=== PATIENT | female | born 1950 | race Caucasian/White ===

== ENCOUNTER → 2016-09-09 | Outpatient (CLI) | payer MEDICARE, OTHER ==
[2016-09-09 14:19] LABS: CREATININE FOR GFR 1.24 MG/DL (0.55-1.02); GLOMERULAR FILTRATION RATE 45.8 (>45)
== END ==
LOC: M LAB 13:37
PROVIDERS: ATTEND Internal Medicine Pulmonary Disease
DX: D86.2 Sarcoidosis of lung with sarcoidosis of lymph nodes (principal)

== ENCOUNTER → 2016-10-05 | Outpatient (CLI) | payer MEDICARE, OTHER ==
[~2016-10-05] MED LIST: ISOVUE-370 76% 100ML VIAL (Q9967) As Ordered ONE
--- NOTE | 2016-10-05 10:35 | REP ---
Clinical: Bronchiectasis. Technique: Axial contrast enhanced images from the lung bases to the pubic symphysis using 100 ml Isovue 370 intravenous contrast material with coronal and sagittal re-formations. Comparison: 06/23/2016, 05/04/2016. Findings: Mild perihilar bronchiectasis is again noted and stable. A subtle diffuse reticulonodular pattern is again appreciated but appears considerably improved when compared to prior examinations. A chronic density with adjacent scarring and possible clip is identified in the basilar right middle lobe which is unchanged from prior examination (images 56 - 63). Noncalcified nodules measuring 4 mm in the right upper lobe (image 39), left lower lobe (image 77) remains stable dating through 05/04/2016. No acute consolidation, pleural effusion/reaction or mass lesion is appreciated. No acute adenopathy. Partially calcified mediastinal and hilar lymph nodes suggest sequelae of prior granulomatous disease or post-therapeutic changes. The heart is upper limits of normal and atherosclerotic changes to the thoracic aorta and coronary arteries noted. No pericardial effusion. Impression: 1. Chronic-appearing changes as described above either stable or improved when compared to prior examinations. 2. No adenopathy and no new acute mediastinal or pleuroparenchymal process appreciated. Signed by Emmanuel Green MD 10/05/2016 10:27 A
== END ==
LOC: M RAD 09:04
PROVIDERS: ATTEND Internal Medicine Pulmonary Disease
DX: J47.1 Bronchiectasis with (acute) exacerbation (principal)
CPT/HCPCS: 71260; Q9967

== ENCOUNTER → 2016-11-04 | Outpatient (CLI) | payer MEDICARE, OTHER ==
--- NOTE | 2016-11-05 09:21 | REPMRS ---
Patient History The patient states she had a clinical breast exam in 10/2016. Family history of breast cancer in maternal aunt at age 50 or over. Taking unspecified hormones. Digital Woman Screen Mammo: November 04, 2016 - Exam #: [id number] Bilateral CC and MLO view(s) were taken. Technologist: Sharron Figueroa Technologist FINDINGS: The breast tissue is heterogeneously dense. This may lower the sensitivity of mammography. There has been no change in the appearance of the mammogram from the prior studies. There is a moderate amount of residual fibroglandular tissue which is fairly symmetric. There is no interval development of dominant mass, areas of architectural distortion, or clustered microcalcification typical of malignancy. ASSESSMENT: BI-RADS/ACR category 1 mammogram. Negative. Recommendation Routine screening mammogram in 1 year (for women over age 40). This mammogram was interpreted with the aid of an FDA-approved computer-aided dectection system. Electronically Signed By: Chintan Du MD 11/05/16 0921
== END ==
LOC: M WHC 10:58
PROVIDERS: ATTEND Nurse Practitioner Family
DX: Z01.419 Encounter for gynecological examination (general) (routine) without abnormal findings (principal); Z12.31 Encounter for screening mammogram for malignant neoplasm of breast; Z79.899 Other long term (current) drug therapy; N95.1 Menopausal and female climacteric states; N89.8 Other specified noninflammatory disorders of vagina; R92.8 Other abnormal and inconclusive findings on diagnostic imaging of breast
CPT/HCPCS: G0101; G0202

== ENCOUNTER → 2018-01-10 | Outpatient (CLI) | payer MEDICARE, OTHER | LOC: M WHC 15:05 | DX: Z12.31 Encounter for screening mammogram for malignant neoplasm of breast (principal); R92.8 Other abnormal and inconclusive findings on diagnostic imaging of breast; Z98.890 Other specified postprocedural states; Z92.29 Personal history of other drug therapy | CPT/HCPCS: 77067 ==

== ENCOUNTER → 2018-02-28 | Outpatient (CLI) | payer MEDICARE, OTHER ==
[2018-02-28 15:56] LABS: BASO % 0.3 % (0.0-1.0); EOS # 0.1 10^3/uL (0.0-0.50); EOS % 3.1 % (0.0-3.0); HEMATOCRIT 34.9 % (36.0-47.0); HEMOGLOBIN 11.6 g/dl (12.0-15.5); IMMATURE GRANULOCYTE % 0.3 % (0-3.0); LYMPH % 26.5 % (24.0-44.0); MEAN CORPUSCULAR HEMOGLOBIN 29.9 pg (27.0-33.0); MEAN CORPUSCULAR HGB CONC 33.2 g/dl (32.0-36.5); MEAN CORPUSCULAR VOLUME 89.9 fl (80.0-96.0); MONO # 0.4 10^3/uL (0.0-0.8); MONO % 10.9 % (0.0-5.0); NEUTROPHILS # 2.3 10^3/uL (1.8-7.7); NEUTROPHILS % 58.9 % (36.0-66.0); PLATELET COUNT, AUTOMATED 151 10^3/uL (150-450); RED BLOOD COUNT 3.88 10^6/uL (4.00-5.40); RED CELL DISTRIBUTION WIDTH 12.7 % (11.5-14.5); WHITE BLOOD COUNT 3.9 10^3/uL (4.0-10.0)
[2018-02-28 16:18] LABS: ERYTHROCYTE SEDIMENTATION RATE 12 mm/hr (0-30)
[2018-03-03 00:11] LABS: ANGIOTENSIN 1 CONVERTING ENZYM 13 U/L (14-82)
== END ==
LOC: M LAB 14:52
DX: J47.9 Bronchiectasis, uncomplicated (principal)
CPT/HCPCS: 82164

== ENCOUNTER → 2019-02-13 | Outpatient (CLI) | payer MEDICARE, OTHER ==
--- NOTE | 2019-02-13 16:02 | REPMRS ---
Patient History The patient states she had a clinical breast exam in 02/2019. Family history of breast cancer at age 50 or over in maternal aunt. Benign localization of breast nodule of the right breast. Took unspecified hormones for 29 years beginning at age 37. 3D TOMOSYNTHESIS WAS PERFORMED. [facility] lifetime risk for breast cancer is 5.9%. Digital Woman Screen Mammo: February 13, 2019 - Exam #: [id number] Bilateral CC and MLO view(s) were taken. Technologist: Martha Lai, Technologist Prior study comparison: January 10, 2018, bilateral digital woman screen mammo performed at [facility]. November 04, 2016, digital woman screen mammo performed at [facility]. FINDINGS: The breast tissue is heterogeneously dense. This may lower the sensitivity of mammography. There has been no change in the appearance of the mammogram from the prior studies. There is a moderate amount of residual fibroglandular tissue which is fairly symmetric. There is no interval development of dominant mass, areas of architectural distortion, or clustered microcalcification typical of malignancy. Assessment: BI-RADS/ACR category 1 mammogram. Negative Mammogram. Recommendation Routine screening mammogram in 1 year (for women over age 40). This mammogram was interpreted with the aid of an FDA-approved computer-aided dectection system. Electronically Signed By: Chintan Du MD 02/13/19 4280
== END ==
LOC: M WHC 13:14
PROVIDERS: ATTEND Nurse Practitioner Family
DX: Z01.419 Encounter for gynecological examination (general) (routine) without abnormal findings (principal); Z12.31 Encounter for screening mammogram for malignant neoplasm of breast; Z86.018 Personal history of other benign neoplasm; Z92.29 Personal history of other drug therapy; Z12.12 Encounter for screening for malignant neoplasm of rectum
CPT/HCPCS: 77063; 77067; 82270; G0101

== ENCOUNTER → 2020-02-15 | Outpatient (CLI) | payer MEDICARE, OTHER ==
--- NOTE | 2020-03-06 09:22 | REPMRS ---
Patient History The patient states she had a clinical breast exam in 02/2020. Family history of breast cancer at age 50 or over in maternal aunt. Benign localization of breast nodule of the right breast. Took unspecified hormones for 29 years beginning at age 37. Digital Woman Screen Mammo: February 15, 2020 - Exam #: [id number] Bilateral CC and MLO view(s) were taken. Technologist: Chayo Pruitt, Technologist Prior study comparison: February 13, 2019, bilateral digital woman screen mammo performed at [facility]. January 10, 2018, bilateral digital woman screen mammo performed at [facility]. November 04, 2016, digital woman screen mammo performed at [facility]. FINDINGS: There are scattered fibroglandular densities. The Volpara volumetric breast density category is:B. There has been no change in the appearance of the mammogram from the prior studies. There is a mild amount of scattered fibroglandular density which is fairly symmetric. There is no interval development of dominant mass, architectural distortion, or grouped microcalcification suggestive of malignancy. 3-D tomosynthesis shows no additional findings. Report was delayed due to a protracted computer network disruption experienced by this facility. Assessment: BI-RADS/ACR category 1 mammogram. Negative Mammogram. Recommendation Routine screening mammogram of both breasts in 1 year (for women over age 40). This patient's Lifetime Breast Cancer Risk is estimated at 5.6 %. This mammogram was interpreted with the aid of an FDA-approved computer-aided dectection system. Electronically Signed By: Tawanda Kelly MD 03/06/20 0922
== END ==
LOC: M WHC 16:41
PROVIDERS: ATTEND Nurse Practitioner Family
DX: Z12.31 Encounter for screening mammogram for malignant neoplasm of breast (principal); Z86.018 Personal history of other benign neoplasm; Z92.29 Personal history of other drug therapy
CPT/HCPCS: 77063; 77067; G0463

== ENCOUNTER → 2020-03-28 | Outpatient (CLI) | payer MEDICARE, OTHER ==
--- NOTE | 2020-04-10 09:35 | REP ---
CHEST X-RAY: 2-VIEWS HISTORY: Bronchiectasis. COMPARISON: Chest x-ray 05/25/2016. FINDINGS: There is a fiducial marker in place in the right middle lobe distribution unchanged from the 2016 prior study. There is a chronic infiltrate in the right middle lobe distribution infrahilar region partially obscuring the right heart border on the frontal view. This is also unchanged from the 2016 study. There is linear fibrosis versus plate-like atelectasis in the left mid lung zone. Heart is not felt to be enlarged. Pleural angles are sharp. Pulmonary vasculature is not increased. No significant bony abnormality is seen. Persistent versus recurrent infiltrate right middle lobe distribution. Fiducial marker noted in place in the right middle lobe. Linear fibrosis versus plate-like atelectasis left mid lung zone. MTDD
== END ==
LOC: M RAD 12:09
PROVIDERS: ATTEND Internal Medicine Pulmonary Disease
DX: J47.9 Bronchiectasis, uncomplicated (principal)

== ENCOUNTER → 2021-01-07 | Outpatient (CLI) | payer MEDICARE, OTHER ==
--- NOTE | 2021-01-07 11:03 | REP ---
INDICATION: KIDNEY STONE COMPARISON: None. TECHNIQUE: Supine view of the abdomen and pelvis. FINDINGS: Evaluation of the urinary tract system is somewhat limited. However, calcifications overlying the lower pole left kidney and left psoas muscle suggest nephroureterolithiasis with possible ureteral calculus measuring 10 x 4 mm and lower pole left renal calculus measuring 6 mm Bowel gas pattern suggests mild fecal stasis. Skeletal structures demonstrate age-related degenerative changes.. IMPRESSION: Left-sided nephroureterolithiasis suggested including possible 10 x 4 mm proximal left ureteral stone <Electronically signed by Emmanuel Green > 01/07/21 1100
== END ==
LOC: M PLAIMG 10:07
PROVIDERS: ATTEND Nurse Practitioner Family
DX: N20.0 Calculus of kidney (principal)
CPT/HCPCS: 74018; G0463

== ENCOUNTER → 2021-01-13 | Outpatient (CLI) | payer MEDICARE, OTHER ==
[2021-01-13 11:29] LABS: APPEARANCE, URINE CLEAR (CLEAR); BACTERIA, URINE AUTO NEGATIVE (NEGATIVE); BILIRUBIN, URINE AUTO NEGATIVE (NEGATIVE); BLOOD, URINE BLOOD NEGATIVE (NEGATIVE); COLOR, URINE STRAW (YELLOW); GLUCOSE, URINE (UA) AUTO NEGATIVE (NEGATIVE); KETONE, URINE AUTO NEGATIVE (NEGATIVE); LEUKOCYTE ESTERASE, URINE AUTO NEGATIVE (NEGATIVE); NITRITE, URINE AUTO NEGATIVE (NEGATIVE); PROTEIN, URINE AUTO NEGATIVE (NEGATIVE); RBC, URINE AUTO 2 /HPF (0-3); SPECIFIC GRAVITY URINE AUTO 1.002 (1.002-1.035); SQUAMOUS EPITHELIAL CELL UR AU 0 /HPF (0-6); UROBILINOGEN, URINE AUTO 0.2 mg/dL (0.0-2.0); WBC, URINE AUTO 0 /HPF (0-3)
[2021-01-13 11:32] LABS: HEMOGLOBIN 11.3 g/dl (12.0-15.5); MEAN CORPUSCULAR HGB CONC 31.4 g/dl (32.0-36.5); MEAN CORPUSCULAR VOLUME 92.5 fl (80.0-96.0); PLATELET COUNT, AUTOMATED 156 10^3/uL (150-450); RED BLOOD COUNT 3.89 10^6/uL (4.00-5.40); WHITE BLOOD COUNT 3.8 10^3/uL (4.0-10.0)
[2021-01-13 11:42] LABS: INR 0.98; PROTHROMBIN TIME 13.2 SECONDS (12.5-14.3)
--- NOTE | 2021-01-13 11:42 | REP ---
INDICATION: CALCULUS OF KIDNEY-LAB AND EKG 1ST COMPARISON: 03/28/2020 TECHNIQUE: PA and lateral. FINDINGS: The mediastinum and cardiac silhouette are stable. Cardiomegaly suspected. The lung vazquez without acute consolidation, effusion, or pneumothorax. The skeletal structures are intact and normal. IMPRESSION: No acute cardiopulmonary process. <Electronically signed by Emmanuel Green > 01/13/21 [id number]
[2021-01-13 11:43] LABS: PARTIAL THROMBOPLASTIN TIME 27.3 SECONDS (24.2-38.5)
[2021-01-13 11:54] LABS: BLOOD UREA NITROGEN 9 MG/DL (7-18); CALCIUM LEVEL 8.7 MG/DL (8.8-10.2); CARBON DIOXIDE LEVEL 30 MEQ/L (21-32); CHLORIDE LEVEL 107 MEQ/L (98-107); CREATININE FOR GFR 0.67 MG/DL (0.55-1.30); GLOMERULAR FILTRATION RATE > 60.0 (>39); GLUCOSE, FASTING 87 MG/DL (70-100); POTASSIUM SERUM 3.8 MEQ/L (3.5-5.1); SODIUM LEVEL 140 MEQ/L (136-145)
--- NOTE | 2021-01-14 08:08 | ECGEPIP ---
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
== END ==
LOC: M LAB 10:39
PROVIDERS: ATTEND Nurse Practitioner Family
DX: N20.0 Calculus of kidney (principal); Z79.01 Long term (current) use of anticoagulants

== ENCOUNTER → 2021-01-27 | Outpatient (REF) | payer MEDICARE, OTHER ==
[~2021-01-27] MED LIST changes: +BREO1INH3; +FLUTISP; -ISOVUE-370 76% 100ML VIAL (Q9967) As Ordered ONE; +LEXA1TAB; +LISI-898; +MONT10TA10; +PANT40TA29; +REST0.05; +ROSU10TA6; +SYNT75TA; +VASC0.5C
[2021-01-27 16:00] LABS: APPEARANCE, URINE CLEAR (CLEAR); BACTERIA, URINE AUTO NEGATIVE (NEGATIVE); BILIRUBIN, URINE AUTO NEGATIVE (NEGATIVE); BLOOD, URINE BLOOD NEGATIVE (NEGATIVE); COLOR, URINE YELLOW (YELLOW); GLUCOSE, URINE (UA) AUTO NEGATIVE (NEGATIVE); KETONE, URINE AUTO NEGATIVE (NEGATIVE); LEUKOCYTE ESTERASE, URINE AUTO 1+ (NEGATIVE); MUCUS, URINE SMALL (NEGATIVE); NITRITE, URINE AUTO NEGATIVE (NEGATIVE); PROTEIN, URINE AUTO NEGATIVE (NEGATIVE); RBC, URINE AUTO 0 /HPF (0-3); SPECIFIC GRAVITY URINE AUTO 1.012 (1.002-1.035); SQUAMOUS EPITHELIAL CELL UR AU 0 /HPF (0-6); UROBILINOGEN, URINE AUTO 0.2 mg/dL (0.0-2.0); WBC, URINE AUTO 8 /HPF (0-3)
== END ==
LOC: M SMT 11:39
PROVIDERS: ATTEND Nurse Practitioner Family
DX: Z01.818 Encounter for other preprocedural examination (principal); N20.0 Calculus of kidney

== ENCOUNTER → 2021-01-31 | Outpatient (CLI) | payer MEDICARE, OTHER | LOC: M LABSMTC 09:48 | PROVIDERS: ATTEND Anesthesiology | DX: Z01.818 Encounter for other preprocedural examination (principal); Z11.52 Encounter for screening for COVID-19 ==

== ENCOUNTER 2021-02-05 09:03 | Day surgery (SDC) | payer MEDICARE, OTHER ==
[~2021-02-05] VITALS: Ht 154.9 cm; Wt 59.9 kg
[~2021-02-05 09:03] MED LIST changes: +CIPROFLOXACIN 400 MG in IV 1 EA IV ONE; +MIDAZOLAM INJ 2MG/2ML VIAL (J2250 PER 1MG) As Ordered ONE; +ONDANSETRON 4MG/2ML VIAL As Ordered ONE; +dexameTHASONE 4 MG/ML 1ML VIAL (J1100 PER 1MG) As Ordered ONE; +fentaNYL 100 MCG/2 ML INJECTION (J3010) As Ordered ONE; +propofoL 500 MG/50 ML VIAL As Ordered ONE
[2021-02-05] MEDS ORDERED: LIDOCAINE 2% 100MG/5ML SDV (FOR ANES.) As Ordered ONE (09:06)
[2021-02-05] MEDS ORDERED: LIDOCAINE 2% 5ML JELLY UROJET As Ordered ONE (10:26)
--- NOTE | 2021-02-05 10:40 | REP ---
INDICATION: KIDNEY STONE KUB BEFORE SDC. COMPARISON: Comparison chest x-ray January 07, 2021.. TECHNIQUE: Supine film of the abdomen, two views presented. FINDINGS: Supine abdominal radiographs demonstrate 3 calcifications in the left mid abdomen which are unchanged in their position and appearance when compared to the recent prior study of January 07, 2021. these include a 5 mm calculus projecting over the lower pole of the left kidney and 11 mm calculus projecting over the left psoas at the level of the transverse process of L3 on the left. There is a 7 mm calcification which projects over the left iliac bone.. This would be lateral to the expected course of the ureter and may be a bone island. IMPRESSION: Intrarenal nephrolithiasis on the left with process a bowl left ureteral calculus. <Electronically signed by Tawanda Kelly > 02/05/21 1032
[2021-02-05] MEDS ORDERED: FLOM0.4C39 PO (11:13)
[2021-02-05] MEDS ORDERED: OXYB5TAB10 PO (11:13)
[2021-02-05] MEDS ORDERED: OXYC1TAB23 PO (11:13)
--- NOTE | 2021-02-05 12:23 | RO ---
OPERATIVE NOTE DATE OF OPERATION: 02/05/2021 PREOPERATIVE DIAGNOSIS: Left kidney and ureteral stones. POSTOPERATIVE DIAGNOSIS: Left kidney and ureteral stones. PROCEDURE: Left extracorporeal shock wave lithotripsy, cystoscopy, left ureteral stent placement. SURGEON: Jm Schwartz MD INDUSTRIAL ECONOMIST: None. ANESTHESIA: MAC. OPERATIVE INDICATIONS: This is a 70-year-old female who was found to have an approximately 1 cm obstructing proximal left ureteral stone as well as an approximately 6 mm lower pole left kidney stone. She is brought to the operating room today for treatment. DESCRIPTION OF PROCEDURE: The patient was brought to the operating room and MAC anesthesia was administered. Prophylactic antibiotics were infused. She was then placed in supine position and prepped and draped after frog-legging her for cystoscopy. Rigid cystoscopy was then performed and the bladder was examined and there were no abnormalities seen inside the bladder. Guidewire was then advanced up the left collecting system. I then advanced a 6-Khmer x 22-32 cm JJ ureteral stent up the left collecting system. The wire was removed and there were adequate curls of the stent in the left renal pelvis and in the bladder. The bladder was then emptied of all fluids. The patient was repositioned for left extracorporeal shock wave lithotripsy. We focused first on the proximal left ureteral stone. Shock waves were delivered to the ureteral stone ungated. There were no arrhythmias. A total of 2500 shocks were delivered to the proximal left ureteral stone. After that was done the patient was repositioned a little bit to focus on the lower pole 6 mm left kidney stone. Total of 500 shocks were delivered to the lower pole left kidney stone. Once again there were no arrhythmias. After that was done this marked the conclusion of the procedure. The patient was awakened from anesthesia and transported to the recovery room in stable condition. ESTIMATED BLOOD LOSS: 0 mL. COMPLICATIONS: None. SPECIMEN: None. PLAN: The patient will follow up in urology clinic in a few weeks with imaging prior to assess for residual stone burden. If we do not see any stones we will remove her stent at that time.
[2021-02-05 12:40] VITALS: BP 141/65
== END 2021-02-05 12:50 | disposition home or self-care (01) ==
LOC: M SDC 09:03
PROVIDERS: ATTEND Urology
DX: N20.2 Calculus of kidney with calculus of ureter (principal); E78.00 Pure hypercholesterolemia, unspecified; K21.9 Gastro-esophageal reflux disease without esophagitis; L40.9 Psoriasis, unspecified; F41.9 Anxiety disorder, unspecified; F32.9 Major depressive disorder, single episode, unspecified; J45.909 Unspecified asthma, uncomplicated; Z79.899 Other long term (current) drug therapy; Z79.51 Long term (current) use of inhaled steroids; Z91.040 Latex allergy status; Z88.8 Allergy status to other drugs, medicaments and biological substances; Z88.1 Allergy status to other antibiotic agents
CPT/HCPCS: 50590; 52332; 74018; C2617; J0744; J1100; J2250; J2405; J3010

== ENCOUNTER → 2021-02-17 | Outpatient (CLI) | payer MEDICARE, OTHER ==
[~2021-02-17] MED LIST changes: -CIPROFLOXACIN 400 MG in IV 1 EA IV ONE; +FLOM0.4C39 PO; -MIDAZOLAM INJ 2MG/2ML VIAL (J2250 PER 1MG) As Ordered ONE; -ONDANSETRON 4MG/2ML VIAL As Ordered ONE; +OXYB5TAB10 PO; +OXYC1TAB23 PO; -dexameTHASONE 4 MG/ML 1ML VIAL (J1100 PER 1MG) As Ordered ONE; -fentaNYL 100 MCG/2 ML INJECTION (J3010) As Ordered ONE; -propofoL 500 MG/50 ML VIAL As Ordered ONE
--- NOTE | 2021-02-17 16:05 | REPMRS ---
Patient History The patient states she has not had a clinical breast exam in over a year. Family history of breast cancer at age 50 or over in maternal aunt. Benign localization of breast nodule of the right breast. Took unspecified hormones for 29 years beginning at age 37. Moderna vaccines both in right arms, unable to remember dates. Patient states no breast complaints today. Patient has signed MRS History Sheet. Digital Woman Screen Mammo: February 17, 2021 - Exam #: [id number] Bilateral CC and MLO view(s) were taken. Technologist: RT Heather Prior study comparison: February 15, 2020, bilateral digital woman screen mammo performed at [facility]. February 13, 2019, bilateral digital woman screen mammo performed at [facility]. January 10, 2018, bilateral digital woman screen mammo performed at [facility]. FINDINGS: There are scattered fibroglandular densities. The Volpara volumetric breast density category is: B. There is a moderate amount of residual fibroglandular tissue which is fairly symmetric. There is no interval development of dominant mass, architectural distortion, or grouped microcalcification typical of malignancy. There has been no change in the appearance of the mammogram from the prior studies. 3-D tomosynthesis shows no additional findings. Assessment: BI-RADS/ACR category 1 mammogram. Negative Mammogram. Recommendation Routine screening mammogram of both breasts in 1 year (for women over age 40). This patient's [facility] Lifetime Breast Cancer RIsk is estimated at 5.3 %. This mammogram was interpreted with the aid of an FDA-approved computer-aided dectection system. Electronically Signed By: Tawanda Kelly MD 02/17/21 2284
== END ==
LOC: M WHC 13:42
PROVIDERS: ATTEND Nurse Practitioner Women's Health
DX: Z12.31 Encounter for screening mammogram for malignant neoplasm of breast (principal); Z86.018 Personal history of other benign neoplasm; Z92.29 Personal history of other drug therapy

== ENCOUNTER → 2021-02-23 | Outpatient (CLI) | payer MEDICARE, OTHER ==
--- NOTE | 2021-02-23 11:32 | REP ---
INDICATION: KIDNEY STONE. COMPARISON: 02/05/2021 FINDINGS: Since the last examination a double pigtail stent has been placed on the left the proximal portion of which is in the region of the renal pelvis and the distal portion of which is in the region of the urinary bladder on the left. Vague calcifications seem to be adjacent to the upper aspect of the stent. Other left renal calcifications are not identified. Intestinal gas pattern is nonspecific. No abnormal calcifications are seen on the right. IMPRESSION: As above <Electronically signed by Rigoberto Oakley > 02/23/21 1129
== END ==
LOC: M RAD 11:15
PROVIDERS: ATTEND Urology
DX: N20.0 Calculus of kidney (principal)

== ENCOUNTER → 2021-03-10 | Outpatient (CLI) | payer MEDICARE, OTHER ==
--- NOTE | 2021-03-10 13:13 | REP ---
INDICATION: MODERATE PERSISTENT ASTHMA, UNCOMPLICATED COMPARISON: 01/13/2021. TECHNIQUE: PA/Lateral FINDINGS: There is chronic right middle lobe opacity unchanged. There is a fiducial marker also noted in that region. There is no acute infiltrate. There is a stable appearance of the cardiac silhouette, which appears mildly prominent. There is some calcification of the thoracic aorta. The mediastinal silhouette is unchanged. No compression deformity is visualized of the thoracic vertebral bodies. IMPRESSION: No acute pulmonary disease. Stable chronic findings as discussed above. <Electronically signed by Chintan Du > 03/10/21 2535
== END ==
LOC: M RAD 12:10
PROVIDERS: ATTEND Internal Medicine Pulmonary Disease
DX: J45.998 Other asthma (principal)

== ENCOUNTER → 2021-09-17 | Outpatient (CLI) | payer MEDICARE, OTHER ==
[~2021-09-17] MED LIST changes: -LISI-898; +LISI5TAB11; -MONT10TA10; +MONT10TA97
== END ==
LOC: M RAD 10:45
PROVIDERS: ATTEND Urology
DX: N20.0 Calculus of kidney (principal)

== ENCOUNTER → 2022-05-13 | Outpatient (CLI) | payer MEDICARE, OTHER | LOC: M WHC 13:30 | PROVIDERS: ATTEND Nurse Practitioner Family | DX: Z12.31 Encounter for screening mammogram for malignant neoplasm of breast (principal) ==

== ENCOUNTER → 2022-09-17 | Outpatient (CLI) | payer MEDICARE, OTHER | LOC: M RAD 14:29 | PROVIDERS: ATTEND Urology | DX: N20.0 Calculus of kidney (principal) ==

== ENCOUNTER → 2023-01-25 | Outpatient (CLI) | payer MEDICARE, OTHER ==
[~2023-01-25] MED LIST changes: +FLUT50SP17; -FLUTISP
[2023-01-25 18:44] LABS: APPEARANCE, URINE HAZY (CLEAR); BACTERIA, URINE AUTO 1+ (NEGATIVE); BILIRUBIN, URINE AUTO NEGATIVE (NEGATIVE); BLOOD, URINE BLOOD 3+ (NEGATIVE); COLOR, URINE AMBER (YELLOW); GLUCOSE, URINE (UA) AUTO NEGATIVE (NEGATIVE); KETONE, URINE AUTO NEGATIVE (NEGATIVE); LEUKOCYTE ESTERASE, URINE AUTO 3+ (NEGATIVE); MUCUS, URINE SMALL (NEGATIVE); NITRITE, URINE AUTO NEGATIVE (NEGATIVE); PROTEIN, URINE AUTO 2+ mg/dL (NEGATIVE); RBC, URINE AUTO TNTC /HPF (0-3); SPECIFIC GRAVITY URINE AUTO 1.006 (1.002-1.035); SQUAMOUS EPITHELIAL CELL UR AU 1 /HPF (0-6); TRANSITIONAL EPITHELIAL AUTO <1 /HPF; UROBILINOGEN, URINE AUTO 0.2 mg/dL (0.0-2.0); WBC, URINE AUTO 13 /HPF (0-3)
== END ==
LOC: M PLAIMG 12:51
PROVIDERS: ATTEND Physician Assistant
DX: N23 Unspecified renal colic (principal); R31.0 Gross hematuria

== ENCOUNTER → 2023-03-25 | Outpatient (CLI) | payer MEDICARE, OTHER ==
[~2023-03-25] MED LIST changes: -BREO1INH3; +BREO1INH3 INH; +CALCTAB89 PO; +CRES20TA2 PO; -FLUT50SP17; +FLUT50SP17 NAS SAD; +KP F1200 PO; -LEXA1TAB; +LEXA1TAB PO; -LISI5TAB11; +LISI5TAB11 PO; -MONT10TA97; +MONT10TA97 PO; -SYNT75TA; +SYNT75TA PO; +VITA100093 PO; +VITA500C24 PO; +VITMTA PO; +areds PO
== END ==
LOC: M PLAIMG 10:07
PROVIDERS: ATTEND Urology
DX: N20.0 Calculus of kidney (principal)

== ENCOUNTER → 2023-03-31 | Outpatient (CLI) | payer MEDICARE, OTHER | LOC: M RAD 13:01 | PROVIDERS: ATTEND Internal Medicine Pulmonary Disease | DX: J45.40 Moderate persistent asthma, uncomplicated (principal) ==

== ENCOUNTER → 2023-04-21 | Outpatient (CLI) | payer MEDICARE, OTHER ==
[~2023-04-21] MED LIST changes: -OXYB5TAB10 PO; +OXYB5TAB11 PO
== END ==
LOC: M PLAIMG 10:13
PROVIDERS: ATTEND Internal Medicine Pulmonary Disease
DX: J45.909 Unspecified asthma, uncomplicated (principal)

== ENCOUNTER → 2023-06-06 | Outpatient (CLI) | payer MEDICARE, OTHER ==
[~2023-06-06] MED LIST changes: +NYST-38 PO
== END ==
LOC: M WHC 13:51
PROVIDERS: ATTEND Nurse Practitioner Family
DX: Z12.31 Encounter for screening mammogram for malignant neoplasm of breast (principal)

== ENCOUNTER → 2023-08-30 | Outpatient (CLI) | payer MEDICARE, OTHER ==
[~2023-08-30] MED LIST changes: -FLUT50SP17 NAS SAD; +FLUTISP NAS SAD; -OXYB5TAB11 PO; +OXYB5TAB14 PO
== END ==
LOC: M PLAIMG 09:20
PROVIDERS: ATTEND Internal Medicine Pulmonary Disease
DX: R91.8 Other nonspecific abnormal finding of lung field (principal)

== ENCOUNTER → 2023-09-26 | Outpatient (CLI) | payer MEDICARE, OTHER | LOC: M PLARAD 13:23 | PROVIDERS: ATTEND Internal Medicine Pulmonary Disease | DX: R91.8 Other nonspecific abnormal finding of lung field (principal) ==

== ENCOUNTER → 2024-04-06 | Outpatient (CLI) | payer MEDICARE, OTHER ==
[~2024-04-06] MED LIST changes: -ROSU10TA6; +ROSU10TA61
== END ==
LOC: M PLAIMG 09:28
PROVIDERS: ATTEND Internal Medicine Pulmonary Disease
DX: R91.8 Other nonspecific abnormal finding of lung field (principal)

== ENCOUNTER → 2024-04-19 | Outpatient (CLI) | payer MEDICARE, OTHER ==
[~2024-04-19] MED LIST changes: +LIDOCAINE 1% MDV 20ML VIAL As Ordered ONE
[2024-04-19 12:20] VITALS: TEMP 97.2
[2024-04-19 12:40] LABS: BASO % 0.2 % (0.0-1.0); EOS # 0.1 10^3/uL (0.0-0.5); EOS % 1.7 % (0.0-3.0); HEMATOCRIT 36.1 % (36.0-47.0); HEMOGLOBIN 11.8 g/dl (12.0-15.5); LYMPH # 1.5 10^3/uL (1.5-5.0); LYMPH % 28.6 % (24.0-44.0); MEAN CORPUSCULAR HEMOGLOBIN 30.6 pg (27.0-33.0); MEAN CORPUSCULAR HGB CONC 32.7 g/dl (32.0-36.5); MEAN CORPUSCULAR VOLUME 93.5 fl (80.0-96.0); MONO # 0.5 10^3/uL (0.0-0.8); MONO % 9.3 % (2.0-8.0); NEUTROPHILS # 3.2 10^3/uL (1.5-8.5); NEUTROPHILS % 59.8 % (36.0-66.0); PLATELET COUNT, AUTOMATED 147 10^3/uL (150-450); RED BLOOD COUNT 3.86 10^6/uL (4.00-5.40); WHITE BLOOD COUNT 5.4 10^3/uL (4.0-10.0)
[2024-04-19 12:58] VITALS: BP 167/74; O2SAT 96
== END ==
LOC: M IRPRO 11:57
PROVIDERS: ATTEND Internal Medicine Hematology & Oncology
DX: D46.9 Myelodysplastic syndrome, unspecified (principal)

== ENCOUNTER → 2024-07-30 | Outpatient (CLI) | payer MEDICARE, OTHER ==
[~2024-07-30] MED LIST changes: +K-PHTAB2 PO; -LIDOCAINE 1% MDV 20ML VIAL As Ordered ONE
== END ==
LOC: M WHC 09:55
PROVIDERS: ATTEND Nurse Practitioner Family
DX: Z12.31 Encounter for screening mammogram for malignant neoplasm of breast (principal); R92.333 Mammographic heterogeneous density, bilateral breasts

== ENCOUNTER → 2024-08-21 | Outpatient (REF) | payer MEDICARE, OTHER | LOC: M SFHCDERM 17:41 | PROVIDERS: ATTEND Physician Assistant | DX: B07.9 Viral wart, unspecified (principal) ==

== ENCOUNTER → 2024-09-28 | Outpatient (CLI) | payer MEDICARE, OTHER | LOC: M RAD 10:21 | PROVIDERS: ATTEND Internal Medicine Pulmonary Disease | DX: J47.9 Bronchiectasis, uncomplicated (principal) ==

== ENCOUNTER → 2025-02-22 | Outpatient (CLI) | payer MEDICARE, OTHER ==
[~2025-02-22] MED LIST changes: -FLOM0.4C39 PO; +TAMS-18 PO
== END ==
LOC: M RAD 09:15
PROVIDERS: ATTEND Specialist
DX: D69.6 Thrombocytopenia, unspecified (principal); R16.1 Splenomegaly, not elsewhere classified

== ENCOUNTER → 2025-03-23 | Outpatient (CLI) | payer MEDICARE, OTHER ==
[2025-03-23 11:10] LABS: BASO # 0.0 10^3/uL (0.0-0.2); BASO % 0.4 % (0.0-1.0); EOS # 0.1 10^3/uL (0.0-0.5); EOS % 2.4 % (0.0-3.0); LYMPH # 1.9 10^3/uL (1.5-5.0); LYMPH % 35.6 % (24.0-44.0); MONO # 0.5 10^3/uL (0.0-0.8); MONO % 9.3 % (2.0-8.0); NEUTROPHILS # 2.8 10^3/uL (1.5-8.5); NEUTROPHILS % 51.4 % (36.0-66.0); PLATELET COUNT, AUTOMATED 134 10^3/uL (150-450)
[2025-03-23 11:37] LABS: ALT/SGPT 31 U/L (7.0-40); AST/SGOT 22 U/L (<34); CALCIUM LEVEL 9.9 MG/DL (8.3-10.6); CARBON DIOXIDE LEVEL 30 MMOL/L (20-31); CHLORIDE LEVEL 109 MMOL/L (98-107); CREATININE FOR GFR 0.61 MG/DL (0.55-1.30); GLOMERULAR FILTRATION RATE > 90.0 (>39); IRON (FE) 95 UG/DL (50-170); PERCENT SATURATION 38.9 % (13.2-45.0); POTASSIUM SERUM 4.1 MMOL/L (3.5-5.1); SODIUM LEVEL 145 MMOL/L (136-145)
== END ==
LOC: M LAB 09:51
PROVIDERS: ATTEND Specialist
DX: D69.6 Thrombocytopenia, unspecified (principal); Z79.899 Other long term (current) drug therapy

== ENCOUNTER → 2025-04-16 | Outpatient (CLI) | payer MEDICARE, OTHER | LOC: M PLARAD 13:31 | PROVIDERS: ATTEND Student in an Organized Health Care Education/Training Program | DX: C83.07 Small cell B-cell lymphoma, spleen (principal) | CPT/HCPCS: 78815; A9552 ==